=== PATIENT | female | born 1970 | race Caucasian/White ===

== ENCOUNTER 2022-11-25 13:29 | Outpatient (RCR) | payer OTHER, SELFPAY ==
--- NOTE | 2022-11-26 11:17 | PT.OPEX ---
PT [place] [facility] Eval PT [facility] Outpatient Eval Start: 11/25/22 13:27 Freq: Status: Active Protocol: Document 11/25/22 13:27 HN (Rec: 11/25/22 17:21 HN [id number]) E-signed By Lenka Degroot DPT Physical Therapy Outpatient Evaluation Insurance Information Insurance Name [employer] Insurance Information/Comments [place] [address] Medical Diagnosis M54.42 - Lumbago with sciatica , left side Treating Diagnosis M54. 32 for Sciatica, left side Referring MD Camelia Moody MD Subjective Subjective Patient is a 52 year old female with low back pain and radiating symptoms into left hip. Patient reports symptoms began 1 year prior after moving couch and leaning back to get it out of a vehicle, couch slid rapidly toward her and she hyperextended lumbar spine. Pain is intermittent, for about a year. Worsened three weeks ago. Pain characteristics: can be sharp or achey, numb/tinging occasionally Aggravating factors: bending forward makes it worse, rolling in bed, worse in morning, worse with sitting Easing Factors: improved with sitting and walking. Prior level of function: independent and unlimited with all ADLs and IADLs Current limitations: bending forward, rolling in bed lifting objects off the ground . 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 Preferred Name Latesha Precautions Treatment Precautions/Contraindications HTN Weight Bearing Status Full Weight Bearing Therapy Limitations/Systems Review Not Limited Objective Other/Pertinent Objective Lumbar range of motion (% full range of motion) Flexion: 75 % with mild increase in pain Extension: 50% with mild increase in pain Left sidebendin% Right sidebendin% Left rotation: 75% mild increase in pain Right rotation: 100% Hip range of motion (degrees): Hip range of motion is grossly intact and symmetrical, with no increase in pain Manual muscle testing: Hip flexion: 5/5 L ,?5/5 R Hip abduction: 3+/5 L ,?4/5 R Hip adduction: 3+/5 L ,?4/5 R Hip extension: 3/5 L ,?4/5 R Knee extension: 5/5 L ,?5/5 R Knee flexion: 5/5 L ,?5/5 R Anklle DF: 5/5 L ,?5/5 R Ankle PF (in sitting): 5/5 L , ?5/5 R Special tests: Slump: negative bilaterally Straight leg raise: negative bilaterally DYLAN: negative bilaterally FADIR: negative bilaterally SCOUR: negative bilaterally Laslett cluster: negative Repeated extension: symptoms worsen, increased numbness and tinglign Repeated flexion: symptoms improve Sensation/Reflexes: Patellar reflex: 2+ bilaterally, normal Sensation: patient denies any changes in sensation Joint mobility: PA mobilizations: hypomobile and painful L3-L5 with reproduction of symptoms Palpation: increased tenderness to palpation along left lumbar paraspinals Gait: patient demonstrates no gait abnormalities Functional Test Performed & Score Modified oswestry disability index: 13 / 50 or 26 % Assessment Assessment/Impression Patient is a 52 year old with complaints of low back pain and radicular symptoive off ground and lifms into left lower extremity. Patient demonstrates impaired lumbar range of motion, impaired glute and core strength, decreased joint mobility and pain consistent with lumbar radicular pain. The impairments impact the patients prolonged sitting, supine to sit and sit to stand transfers, forward flexion to pick objectt objects off ground. Patient will benefit from skilled physical therapy to address the impairments and activity limitations listed above. Prognostic factors include symptoms to do not cross knee, patient's few comorbidities, and chronicity of symptoms. Primary Functional Limitations prolonged sitting, supine to sit and sit to stand transfers , forward flexion to pick objectt objects off ground Plan of Care Rehabilitation Potential Good Rehabilitation Potential Comments Prognostic factors include symptoms to do not cross knee, patient's few comorbidities, and chronicity of symptoms. Physical Therapy Goals Short term goals ( 4 weeks ) 1. Patient will tolerate sitting >60 minutes with no increase in pain order to complete ADLs. 2. Patient will report <6/10 pain in order to demonstrate decreased pain and disability related to symptoms 3. Patient will demonstrate independence with HEP in order to manage symptoms independently at home 4. Patient will demonstrate bilateraly MMT of 4+/5 or greater in hip and LE in order to demonstrate improved tolerance with lifting, carrying groceries. business objects architect goals ( 8 weeks, ) 1. Patient will demonstrate 12 point improvement in Oswestry Disability Index in order to demonstrate decreased pain and disability related to low back pain. 2. Patient will demonstrate full pain-free lumbar range of motion in order to complete ADLs and IADLs with no increase in pain. 3. Patient will tolerate lifting 20 pounds with no increase in pain in order to carry groceries/laundry. 4. Patient will report <4/10 pain in order to demonstrate decreased pain and disability related to symptoms. 5. Patient will tolerate floor transfer with no increase in pain in order to play on ground with granddaughter. Coordination/Communication With Referral Source Treatment Plan/Direct Interventions Electrical Stimulation,Heat, Joint Mobilization,Manual Therapy,Neuromuscular Re-ed, Self-Care/Home Management, Therapeutic Activities, Therapeutic Exercises,Traction (Mechanical) Frequency/Duration 1-2x/week for 8-10 weeks Patient Will Be Discharged From Therapy Completion of LTG(s),Skills Plateau,Independent w/HEP Evaluation Billing Untimed Code Treatment Minutes 32 Complexity Low Certification Information Physician Comment/Change : Physician NPI Number #
== END 2022-12-12 10:19 | disposition home or self-care (01) ==
PROVIDERS: PCP Family Medicine; Visit Provider Family Medicine
DX: M54.42 Lumbago with sciatica, left side (principal); Z51.89 Encounter for other specified aftercare
CPT/HCPCS: 97110; 97140; 97161

== ENCOUNTER 2023-06-22 08:13 | Emergency (ER) | payer OTHER, SELFPAY ==
[2023-06-22 08:53] VITALS: BP 144/87; PULSE 88; RESP 18; TEMP 37; O2SAT 98; BMI 22.9
--- NOTE | 2023-06-22 10:26 | ED_ITS ---
HPI - Abdominal Pain General Time Seen by Provider: 10:38 Date Seen: 06/22/23 Chief Complaint: Abdominal Pain Stated Complaint: Abdominal pain Time Seen by Provider: 06/22/23 08:30 Source: patient and RN notes reviewed Mode of arrival: ambulatory Limitations: no limitations History of Present Illness HPI narrative: Jack is a 52-year-old female coming in with right lower quadrant abdominal pain that awoke her around 1:00 a.m. this morning. Since arriving, the crampy type pain she was feeling has improved a little bit. She is feeling mostly comfortable lying in bed now. It does hurt if she presses on the right lower quadrant. She has not had her appendix out. No history of kidney stones. She believes her mom had her appendix out in her 40s. She has not had any fevers but has felt a little chilled at times. She did have a little bit of a bowel movement today, no diarrhea. She felt a little nauseated earlier, no vomiting but no appetite this morning. She has drink a little water. Have reviewed with her that she should withhold from any oral intake at this point. She is postmenopausal. MD elicited complaint: abdominal pain Related Data Hx Last Menstrual Period: Postmenopausal Patient : No Home Medications Medication Instructions Recorded Confirmed levothyroxine 75 mcg tablet 75 mcg PO QAM 06/22/23 06/22/23 lisinopril 5 mg tablet 5 mg PO DAILY 06/22/23 06/22/23 loratadine 10 mg tablet (Allergy 10 mg PO DAILY 06/22/23 06/22/23 Relief (loratadine)) nortriptyline 25 mg capsule 25 mg PO QPM 06/22/23 06/22/23 Previous Rx's Medication Instructions Recorded ondansetron 4 mg disintegrating 4 mg PO Q6H PRN nausea and 06/22/23 tablet vomiting #10 tabs Allergies Allergy/AdvReac Type Severity Reaction Status Date / Time Penicillins Allergy Verified 06/22/23 08:52 Review of Systems Status of ROS Reports: 6 or more systems reviewed and unremarkable except as noted in History and below [facility] Social History Smoking Status: Never smoker How often do you have a drink containing alcohol: never AUDIT-C Alcohol total score: 0 Non-prescribed substance use: denies use Exam Const: Vital Signs, click to edit/add: Vital Signs - 24 hr 06/22/23 08:53 Temperature 98.6 F Pulse Rate [Right Pulse Oximeter] 88 Respiratory Rate 18 Blood Pressure [Ri ght Upper Arm] 144/87 H Pulse Oximetry 98 Oxygen Delivery Me thod Room Air Chill is alert, interactive, no apparent distress lying in the bed in exam room 3. Sclera clear, conjugate gaze. Symmetrical facial function, speech normal. CV regular rate and rhythm no murmur, lungs are clear with good air entry, no tachypnea or increased work of breathing. Abdomen is soft, nondistended, normal bowel sounds. There is no organomegaly or masses noted but she does have right lower quadrant tenderness without rebound or guarding. Pelvic exam deferred at this point. Patient was ambulatory into the ED of her own accord. Documenting provider has reviewed patient's vital signs: yes Course Course ED Course: This patient has right lower quadrant abdominal pain. Have reviewed with her that there certainly bowel down there, appendicitis and colitis are possibilities, urinary system abnormalities including but not limited to kidney stones. There is also female organs and ovarian pathology is a possibility as well. Will await CBC and urinalysis to help guide imaging but do believe she needs imaging. She denies any need for pain management at this time, is requested to let us know if that changes. Reevaluation(s) Time of Reevaluation #1: 11:31 Reevaluation #1: Reviewed with Latesha that her white blood count is normal, no significant hematuria on her urinalysis. We will proceed with CT imaging of abdomen pelvis with IV contrast. Her pain is still fine at this time unless she presses on her abdomen. Time of Reevaluation #2: 13:25 Reevaluation #2: Reviewed patient's finding of possible enteritis versus mesenteric adenitis. We discussed that this is supportive care, will send Hailey in. Treatment with pain with Tylenol and ibuprofen. She could develop nausea vomiting, diarrhea but may not necessarily. I would anticipate she may have symptoms upward of a week if it is mesenteric adenitis. Will give her handouts on both. Vital Signs Vital signs: Initial Vital Signs Temperature 98.6 F 06/22/23 08:53 Temperature Source Temporal Artery Scan 06/22/23 08:53 Pulse Rate 88 06/22/23 08:53 Respiratory Rate 18 06/22/23 08:53 Blood Pressure 144/87 H 06/22/23 08:53 Blood Pressure Mean 106 H 06/22/23 08:53 Blood Pressure Position Sitting 06/22/23 08:53 Pulse Oximetry 98 06/22/23 08:53 Oxygen Delivery Method Room Air 06/22/23 08:53 Vital Signs Temperature 98.6 F 06/22/23 08:53 Pulse Rate 88 06/22/23 08:53 Respiratory Rate 18 06/22/23 08:53 Blood Pressure 144/87 H 06/22/23 08:53 Pulse Oximetry 98 06/22/23 08:53 Oxygen Delivery Method Room Air 06/22/23 08:53 Temperature 98.6 F 06/22/23 08:53 Pulse Rate 88 06/22/23 08:53 Respiratory Rate 18 06/22/23 08:53 Blood Pressure 144/87 H 06/22/23 08:53 Pulse Oximetry 98 06/22/23 08:53 Oxygen Delivery Method Room Air 06/22/23 08:53 MDM - Abdominal Pain Differential Diagnosis Differential diagnosis: Likely abdominal pain, acute appendicitis, calculus of kidney, diverticulitis and small bowel obstruction Lab Data Attestation: I reviewed the patient's lab results. Labs: Lab Results 06/22/23 06/22/23 Range/Units 10:22 11:00 WBC 7.29 (4.50-11.00) K/uL RBC 4.97 (4.00-5.20) m/uL Hgb 14.8 (12.0-16.0) gm/dL Hct 44.6 (33.0-51.0) % MCV 90 (80-100) fL MCH 30 (26-34) pg MCHC 33 (32-36) gm/dL RDW Coeff of Katty 11.7 (11.5-15.5) % Plt Count 277 (140-440) K/uL Neut % (Auto) 72.1 H (42.0-72.0) % Lymph % (Auto) 19.8 L (20-44) % [place] % (Auto) 5.6 (0.0-11.0) % Eos % (Auto) 1.9 (0.0-7.0) % Baso % (Auto) 0.5 (0.0-3.0) % Neut # (Auto) 5.30 (1.7-7.0) K/uL Lymph # (Auto) 1.40 (0.90-2.90) K/uL [place] # (Auto) 0.40 (0.00-0.90) K/UL Eos # (Auto) 0.14 (0.00-0.50) K/uL Baso # (Auto) 0.04 (0.00-0.30) K/uL Abs Immat Gran (auto) 0.01 (0.00-0.30) K/uL Imm/Tot Granulo (auto) 0.1 % Sodium 140 (135-149) mmol/L Potassium 4.3 (3.6-5.1) mmol/L Chloride 107 (96-114) mmol/L Carbon Dioxide 26 (20-32) mmol/L Anion Gap 7 (7-15) mEq/L BUN 10 (7-30) mg/dL Creatinine 0.5 (0.5-1.5) mg/dL Estimated Creat Clear 101.73 Estimated GFR 111 ml/min Glucose 94 (60-115) mg/dL Calcium 9.2 (8.4-10.6) mg/dL C-Reactive Protein < 0.5 L (0.5-1.0) mg/dL Urine Color Yellow (Yellow) Urine Appearance Clear (Clear) Urine pH 7.0 (5.0-8.5) Ur Specific [place] 1.010 (1.000-1.030) Urine Protein Negative (Negative) Urine Glucose (UA) Negative (Negative) Urine Ketones Negative (Negative) Urine Blood Negative (Negative) Urine Nitrite Negative (Negative) Urine Bilirubin Negative (Negative) Urine Urobilinogen 0.2 (0.2-1.0) Ur Leukocyte Esterase Negative (Negative) Urine RBC 0-2 (0-2) Urine WBC 0-2 (0-5) Ur Squamous Epith Cells None (None-Few) Amorphous Sediment Few A (None) Other Sediment 0 (None) Urine Bacteria None (None) Imaging Data CT scan - abdomen: Attestation: I have reviewed the pertinent imaging results. Radiologist's impression: Patient: CHARLIE FLANNERY Facility:?[facility] Patient ID:?[id number] Site Patient ID:?[id number]. Site :?02/11/1939 Study:?CT Abdomen/Pelvis w/ 57cc [id number]/2023 12:06:33 PM Ordering Physician:Zane Neri Final Report: INDICATION: Vomiting and diarrhea TECHNIQUE: Axial images were obtained from the diaphragm to the pubic symphysis. Reformats were obtained in the coronal and sagittal plane. IV Contrast: 57 cc Isovue 370 Oral Contrast: None COMPARISON: Abdomen and pelvis CT 11/17/2022 FINDINGS: Lower chest: Linear subpleural densities within the lungs, favor areas of parenchymal scarring. Mild coronary atherosclerosis. Small hiatal hernia. Liver: Calcification within the liver with diffusely decreased density. Gallbladder and bile ducts: Cholelithiasis without pericholecystic inflammation. Spleen: Calcifications within the spleen. Pancreas: Moderate pancreatic atrophy. Adrenal glands: Unremarkable. No nodules. Kidneys: Unremarkable. No masses, stones, or hydronephrosis. Vasculature: Atherosclerosis without abdominal aortic aneurysm. GI tract: Small hiatal hernia. The stomach is decompressed. Evaluation of the bowel is somewhat limited due to patient motion on the exam. Mesenteric lymph nodes noted measuring less than 1 centimeter. Some wall thickening of distal small bowel loops questioned (series 2, image 127). Colon is decompressed. Moderate colonic diverticulosis noted. Pelvis: Status post hysterectomy. Bladder decompressed. Bones: Unremarkable for age. IMPRESSION: 1. Suggestion of some distal small bowel wall thickening with subcentimeter lymph nodes within the adjacent mesentery suggestive of an enteritis/mesenteric adenitis. 2. Moderate hepatic steatosis. 3. Cholelithiasis without CT evidence of cholecystitis. 4. Old granulomatous disease. Please note that all CT scans at this facility use dose modulation, iterative reconstruction, and/or weight-based dosing when appropriate to reduce radiation dose to as low as reasonably achievable. Dictated by Anastacio Otto MD @ 06/22/2023 1:20:38 PM (Electronic Signature) Critical Care Time Critical Care Time Critical Care Time: No Discharge Plan Discharge Clinical Impression: Abdominal pain, right lower quadrant Patient Disposition: Home, Self-Care Condition: Stable Instructions: Mesenteric Adenitis (ED), Enteritis (ED) Additional Instructions: CT findings consistent with possible early enteritis versus a mesenteric ad enitis. Use Tylenol and ibuprofen per bottle directions as needed for pain management. Recommend using Zofran for nausea control to allow you to take in adequate fluids. Would try clear liquids for the next 24-48 hours. Advanced diet as tolerated, hunger should mediate that. If you are not improving over the next week, have increased symptoms that are worrisome, are unable to take in orals despite Zofran, do recommend re-evaluation. Activity Level: Activity as Tolerated Prescriptions: New ondansetron 4 mg tablet,disintegrating 4 mg PO Q6H PRN (Reason: nausea and vomiting) Qty: 10 0RF No Action levothyroxine 75 mcg tablet 75 mcg PO QAM nortriptyline 25 mg capsule 25 mg PO QPM lisinopril 5 mg tablet 5 mg PO DAILY loratadine [Allergy Relief (loratadine)] 10 mg tablet 10 mg PO DAILY Follow Up/Referrals: Camelia Moody MD [Primary Care Provider] - Stand Alone Forms: Ad.IQth Info Instructions
[2023-06-22 10:31] LABS: Appearance Urine Clear (Clear); Bilirubin Urine Negative (Negative); Blood Urine Negative (Negative); Color Urine Yellow (Yellow); Glucose Urine Negative (Negative); Ketones Urine Negative (Negative); Leukocyte Esterase Urine Negative (Negative); Nitrite Urine Negative (Negative); Protein Urine Negative (Negative); Urobilinogen Urine 0.2 (0.2-1.0)
[2023-06-22 10:56] LABS: Amorphous Sediment Urine Few; Other Sediment Urine 0; RBC Urine 0-2 (0-2); WBC Urine 0-2 (0-5)
[2023-06-22 11:11] LABS: Basophils Absolute Auto 0.04 K/uL (0.00-0.30); Basophils Percent Auto 0.5 % (0.0-3.0); Eosinophils Absolute Auto 0.14 K/uL (0.00-0.50); Eosinophils Percent Auto 1.9 % (0.0-7.0); Hematocrit 44.6 % (33.0-51.0); Hemoglobin* 14.8 gm/dL (12.0-16.0); Immature Granulocytes Abs Auto 0.01 K/uL (0.00-0.30); Immature Granulocytes Pct Auto 0.1 %; Lymphocytes Percent Auto 19.8 % (20-44); Mean Corpuscular HGB Conc 33 gm/dL (32-36); Mean Corpuscular Hemoglobin 30 pg (26-34); Mean Corpuscular Volume 90 fL (80-100); Monocytes Percent Auto 5.6 % (0.0-11.0); Neutrophils Percent Auto 72.1 % (42.0-72.0); Platelet Count* 277 K/uL (140-440); RDW Coefficient of Variation % 11.7 % (11.5-15.5); Red Blood Count 4.97 m/uL (4.00-5.20); White Blood Count* 7.29 K/uL (4.50-11.00)
[2023-06-22 11:18] LABS: Slide Review Reflex No
[2023-06-22 11:25] LABS: Chloride* 107 mmol/L (96-114)
[2023-06-22 11:26] LABS: Potassium* 4.3 mmol/L (3.6-5.1); Sodium* 140 mmol/L (135-149)
[2023-06-22 11:28] LABS: Creatinine* 0.5 mg/dL (0.5-1.5); Est. Creatinine Clearance* 101.73; Estimated Glomerular Filt Rate 111 ml/min
[2023-06-22 11:29] LABS: Anion Gap 7 mEq/L (7-15); Blood Urea Nitrogen* 10 mg/dL (7-30); Carbon Dioxide* 26 mmol/L (20-32)
[2023-06-22 11:30] LABS: Calcium* 9.2 mg/dL (8.4-10.6); Glucose* 94 mg/dL (60-115)
--- NOTE | 2023-06-22 11:30 | CRLHL7_ITS ---
For Patients: As a result of the Century Cures Act, medical imaging exams and procedure reports are released immediately into your electronic medical record. You may view this report before your referring provider. If you have questions, please contact your health care provider. INDICATION: Right lower quadrant abdominal pain COMPARISON: None. TECHNIQUE: CT of the abdomen and pelvis without intravenous contrast. Multiplanar axial, coronal, and sagittal reformats were reconstructed. Intravenous contrast: None. Oral contrast was not administered. FINDINGS: Lung bases: Normal. Liver: Normal size and non-contrast attenuation. Gallbladder and biliary tree: Normal gallbladder. No biliary duct dilation. Pancreas: Normal. Spleen: Normal size. Adrenal glands: Normal. No nodules. Kidneys and bladder: Normal size and position. No obvious cyst or mass. No calculi. No urinary tract dilation. The urinary bladder is normal. GI: Normal. No dilated segments. No abnormal bowel wall thickening. Moderate stool burden, primarily in the right colon. The appendix is normal. Vessels: Normal caliber abdominal aorta with minimal calcified atherosclerotic plaques. Peritoneum: No free fluid. Lymph nodes: No adenopathy. Pelvis: Physiologic appearance of the reproductive organs. Surgical clips along both fallopian tubes. Bones: No fractures. No focal bone lesions. Normal for age. IMPRESSION: Moderate stool burden, primarily in the right colon. Otherwise, normal CT abdomen and pelvis. Please note that all CT scans at this facility use dose modulation, iterative reconstruction, and/or weight-based dosing when appropriate to reduce radiation dose to as low as reasonably achievable. Dictated by Karen Barr MD @ 06/22/2023 1:11:27 PM (Electronically Signed)
[2023-06-22 11:34] LABS: C Reactive Protein* < 0.5 mg/dL (0.5-1.0)
== END 2023-06-22 13:47 | disposition home or self-care (01) ==
PROVIDERS: Emergency Provider Family Medicine; PCP Family Medicine
DX: R10.31 Right lower quadrant pain (principal)
CPT/HCPCS: 36415; 74176; 80048; 81001; 85025; 86140; 99283; 99284